=== PATIENT | female | born 1945 | race Caucasian/White ===

== ENCOUNTER 2018-01-26 22:32 | Emergency (ER) | payer MEDICARE ==
[2018-01-26 23:18] LABS: #Basophils 0.1 thou/uL (0.0-0.2); #Eosinphils 0.2 thou/uL (0.0-0.7); #Lymphocytes 2.4 thou/uL (1.20-3.40); #Monocytes 0.8 thou/uL (0.11-0.59); #Neutrophils 8.9 thou/uL (1.40-6.50); %Basophils 0.9 % (0.0-1.0); %Eosinophils 1.3 % (0.0-10.0); %Lymphocytes 19.3 % (21.0-51.0); %Monocytes 6.5 % (0.0-10.0); %Neutrophils 71.9 % (42.0-75.0); Hemoglobin 11.6 g/dL (12.0-16.0); Mean Corpuscular HGB CONC 34.5 g/dL (32.0-36.0); Mean Corpuscular Hemoglobin 27.2 pg (27.0-31.0); Mean Corpuscular Volume 78.9 fL (78.0-98.0); Mean Platelet Volume 6.5 fL (7.4-10.4); Platelet Count 301 thou/uL (130-400); RBC Distribution Width 12.7 % (11.5-14.5); Red Blood Cell (RBC) Count 4.27 mill/uL (4.20-5.40); White Blood Cell (WBC) Count 12.4 thou/uL (4.8-10.8)
[2018-01-26 23:22] LABS: pH (venous) 7.375 (7.32-7.43)
[2018-01-26 23:24] LABS: Hemoglobin (Hb) 12.2 g/dL (11.7-16.1)
[2018-01-26 23:42] LABS: CKMB 2.5 ng/mL (0-6.6); Troponin I Less than 0.010 ng/mL (< 0.028)
[2018-01-26 23:43] LABS: ALT (SGPT) 21 U/L (8-55); AST (SGOT) 19 U/L (5-34); Albumin 4.1 g/dL (3.4-4.8); Alkaline Phosphatase 52 U/L (40-150); Anion Gap 18 mmol/L (10-20); BUN (Urea Nitrogen) 25 mg/dL (9.8-20.1); Bilirubin, Total 0.3 mg/dL (0.2-1.2); Calc. Creatinine Clearance 0 mL/min (70-130); Calcium 9.6 mg/dL (7.8-10.44); Carbon Dioxide 18 mmol/L (23-31); Chloride 108 mmol/L (98-107); Estimated GFR-MDRD 54; Globulin 3.6 g/dL (2.4-3.5); Glucose 128 mg/dL (83-110); Potassium 4.3 mmol/L (3.5-5.1); Protein, Total 7.7 g/dL (6.0-8.3); Sodium 140 mmol/L (136-145)
--- NOTE | 2018-01-27 08:12 | CT ---
PRELIMINARY REPORT/[facility]/EMERGENTY AFTER-HOURS PROCEDURE CT Head Without Intravenous Contrast CLINICAL HISTORY: Pain and signs and symptoms; Dizziness and other: HTN; Headache; Headache not speci fied; Patient HX: Pt presents to the er for high blood sugar; Headache TECHNIQUE: Axial computed tomography images of the head/brain without intravenous contrast. All CT sc ans at this facility use at least one of these dose optimization techniques: automated exposure contr ol; mA and/or kV adjustment per patient size (includes targeted exams where dose is matched to clinical indication); or iterative reconstruction. COMPARISON: No relevant prior studies available. FINDINGS: Brain: There is diffuse cerebral atrophy present. There is minimal bilateral periventricular and subc ortical white matter hypodensity which is nonspecific and can be seen in the setting of chronic microvascular angiopathy. Lujan-white matter differentiation is within normal limits. No hemorrhage. Ventricles: Unremarkable. No ventriculomegaly. Bones/joints: Unremarkable. No acute fracture. Soft tissues: Unremarkable. Vasculature: There is atherosclerotic disease of the internal carotid arteries bilaterally. Sinuses: Unremarkable as visualized. No acute sinusitis. Mastoid air cells: Unremarkable as visualized. No mastoid effusion. Sella: Incidental note is made of an empty sella. IMPRESSION: 1. No acute intracranial or extra-axial abnormality. 2. Other findings as above. Thank you for allowing us to participate in the care of your patient. Dictated and Authenticated by: Danelle Baez MD 01/26/2018 11:45 PM Central Time ([place] & [place]) CT BRAIN WITHOUT CONTRAST: 01/26/2018 FINDINGS: The ventricles are normal in size with no shift. No intracranial bleeding, mass, or sign of stroke i s found. There is normal lujan-white distinction. The calvarium appears normal. The visible paranas al sinuses and mastoid air cells are clear. IMPRESSION: No acute intracranial findings. Report in agreement with preliminary reading by [facility]. POS: HOME
== END 2018-01-26 23:55 | disposition home or self-care (01) ==
LOC: BURERS 22:32
DX: E11.65 Type 2 diabetes mellitus with hyperglycemia (principal); E86.0 Dehydration; I10 Essential (primary) hypertension; Z79.899 Other long term (current) drug therapy; Z79.84 Long term (current) use of oral hypoglycemic drugs
CPT/HCPCS: 36415; 36416; 70450; 80053; 82553; 82805; 84484; 85025; 93005